=== PATIENT | female | born 1955 | race African-American/Black ===

== ENCOUNTER 2019-09-09 14:19 | Emergency (ER) | payer SELFPAY ==
[~2019-09-09] VITALS: Ht 165.1 cm; Wt 70.0 kg
[2019-09-09] MEDS ORDERED: ACETAMINOPHEN WITH CODEINE 300/30MG TABLET PO ONE (18:00)
[2019-09-09 20:10] VITALS: BP 131/74
== END 2019-09-09 20:10 | disposition home or self-care (01) ==
LOC: ER 14:19
DX: M22.3X1 Other derangements of patella, right knee (principal); I10 Essential (primary) hypertension
CPT/HCPCS: 73560; 99283

== ENCOUNTER 2019-11-11 10:23 | Inpatient (IN) | payer MEDICAID, OTHER ==
[~2019-11-11] VITALS: Ht 170.2 cm; Wt 97.1 kg
[2019-11-11] MEDS ORDERED: ASPIRIN 81MG TABLET PO ONE (11:00)
[2019-11-11] MEDS ORDERED: LORAZEPAM 0.5MG TABLET PO ONE (11:00)
[2019-11-11 11:29] LABS: BASOPHILS % 0.7 % (0.0-2.0); EOSINOPHILS % 0.1 % (0.0-5.0); HEMATOCRIT. 48.1 % (36.0-48.0); HEMOGLOBIN. 15.9 g/dL (12.0-16.0); LYMPHOCYTES % 26.6 % (20.0-50.0); MEAN CORPUSCULAR HEMOGLOBIN 29.5 pg (28.0-32.0); MEAN PLATELET VOLUME 8.2 fl (7.4-10.4); MONOCYTES % 5.7 % (2.0-8.0); NEUTROPHILS % 66.9 % (40.0-76.0); PLATELET 242 x1000/uL (130-400); RED BLOOD CELL COUNT 5.41 mill/uL (4.2-5.4); RED CELL DISTRIBUTION WIDTH 15.2 % (11.6-14.6)
[2019-11-11 11:38] LABS: CHLORIDE 102 mEq/L (98-107); INR 1.2; PROTHROMBIN TIME 12.2 sec (9.6-11.0)
[2019-11-11 11:41] LABS: CLARITY URINE CLEAR (CLEAR); COLOR URINE DARK YELLOW (YELLOW); KETONES URINE 2+ (NEGATIVE); LEUKOCYTE ESTERASE URINE TRACE (NEGATIVE); NITRITE URINE NEGATIVE (NEGATIVE); OCCULT BLOOD URINE TRACE (NEGATIVE); PROTEIN URINE 1+ (NEGATIVE); SPECIFIC GRAVITY URINE 1.033 (1.005-1.030)
[2019-11-11 11:43] LABS: ETHANOL BLOOD < 10 mg/dL
[2019-11-11] MEDS ORDERED: POTASSIUM CHLORIDE 20MEQ TABLET SR PO ONE ×2 (12:00)
[2019-11-11 12:03] LABS: CREATINE KINASE 149 IU/L (26-192)
[2019-11-11 12:08] LABS: *AMPHETAMINES SCREEN URINE NEGATIVE (NEGATIVE); *BARBITURATES SCREEN URINE NEGATIVE (NEGATIVE); *BENZODIAZEPINES SCREEN URINE NEGATIVE (NEGATIVE)
[2019-11-11 12:09] LABS: *COCAINE SCREEN URINE NEGATIVE (NEGATIVE); CANNABINOID URINE SCREEN NEGATIVE (NEGATIVE); METHADONE URINE SCREEN NEGATIVE (NEGATIVE); OPIATES URINE SCREEN NEGATIVE (NEGATIVE); PHENCYCLIDINE URINE SCREEN NEGATIVE (NEGATIVE)
[2019-11-11] MEDS ORDERED: AZITHROMYCIN 500 MG in DEXT 5% WATER 250 ML IV STA (12:14)
[2019-11-11] MEDS ORDERED: CEFTRIAXONE 1 G PREMIX 50 ML IV ONE (12:15)
[2019-11-11] MEDS ORDERED: LORAZEPAM 2MG/ML CPJ IV ONE (13:00)
[2019-11-11] MEDS ORDERED: NITROGLYCERIN 0.4MG TABLET SL SL ONE (15:30)
[2019-11-11] MEDS ORDERED: LORAZEPAM 1MG TABLET PO PRN (17:15)
[2019-11-11] MEDS ORDERED: ONDANSETRON HCL 4MG/2ML INJ IV PRN (17:15)
[2019-11-11] MEDS ORDERED: ENOXAPARIN 40MG/0.4ML SYR SUBCUT SCH (18:00)
[2019-11-11 19:00] VITALS: BP 131/101
[2019-11-11 20:28] VITALS: BP 133/82
[2019-11-11] MEDS ORDERED: NITROGLYCERIN 0.4MG TABLET SL SL PRN (20:45)
[2019-11-11] MEDS: METOPROLOL TARTRATE 50MG TABLET PO SCH (21:35)
[2019-11-11] MEDS: LORAZEPAM 1MG TABLET PO PRN (21:49)
[2019-11-12 00:06] VITALS: BP 141/83
[2019-11-12 04:00] VITALS: BP 154/70
[2019-11-12 08:00] VITALS: BP 134/80
[2019-11-12] MEDS: CEFTRIAXONE 1,000 MG in DEXTROSE 5% WATER 50 ML IV SCH (08:28)
[2019-11-12] MEDS ORDERED: ENOXAPARIN 40MG/0.4ML SYR SUBCUT SCH (09:00)
[2019-11-12] MEDS: ASPIRIN 325MG EC TABLET PO SCH (09:02)
[2019-11-12] MEDS: AZITHROMYCIN 250 MG TABLET PO SCH (09:03)
[2019-11-12] MEDS: LORAZEPAM 1MG TABLET PO PRN ×2 (09:03→20:22)
[2019-11-12] MEDS: METOPROLOL TARTRATE 50MG TABLET PO SCH ×2 (09:03→20:22)
[2019-11-12 12:00] VITALS: BP 151/84
[2019-11-12] MEDS ORDERED: CEFTRIAXONE 1 G PREMIX 50 ML IV SCH (12:00)
[2019-11-12] MEDS: NICOTINE 21MG PATCH TD SCH (13:56)
[2019-11-12 16:00] VITALS: BP 150/79
[2019-11-12 20:00] VITALS: BP 118/61
[2019-11-12] MEDS: ACETAMINOPHEN 325MG TABLET PO PRN (20:21)
[2019-11-13] VITALS: BP 166/83
[2019-11-13] MEDS: ACETAMINOPHEN 325MG TABLET PO PRN (02:47)
[2019-11-13 04:00] VITALS: BP 176/88
[2019-11-13] MEDS: LORAZEPAM 1MG TABLET PO PRN ×2 (04:13→14:36)
[2019-11-13 08:00] VITALS: BP 155/103
[2019-11-13] MEDS: CEFTRIAXONE 1,000 MG in DEXTROSE 5% WATER 50 ML IV SCH (08:15)
[2019-11-13] MEDS: AZITHROMYCIN 250 MG TABLET PO SCH (08:15)
[2019-11-13] MEDS: METOPROLOL TARTRATE 50MG TABLET PO SCH (08:15)
[2019-11-13] MEDS: ASPIRIN 325MG EC TABLET PO SCH (08:15)
[2019-11-13] MEDS: NICOTINE 21MG PATCH TD SCH (08:15)
[2019-11-13] MEDS ORDERED: LORA-250 PO (11:30)
[2019-11-13] MEDS ORDERED: AMLO10TA80 MT (11:30)
[2019-11-13] MEDS ORDERED: NICO-682 TD (11:30)
[2019-11-13 11:55] VITALS: BP 153/91
[2019-11-13 12:00] VITALS: BP 177/93
[2019-11-13] MEDS ORDERED: AMLODIPINE 10MG TABLET PO SCH (12:00)
[2019-11-13] MEDS ORDERED: HYDRALAZINE HCL 100MG TABLET PO SCH (13:45)
[2019-11-13] MEDS ORDERED: IOHEXOL-300 50 ML BOTTLE IV ONE (13:51)
[2019-11-14] MEDS ORDERED: ENOXAPARIN 30MG/0.3ML SYR SUBCUT SCH (09:00)
== END 2019-11-13 15:40 | disposition home or self-care (01) | DRG 139 ==
LOC: ER 10:23 → 7WST 16:01 → EDBEDREQ 16:27 → EDBEDREQTM 16:27 → ENRESERV 16:53 → ER 18:26 → CANBEDREQ 19:07
PROVIDERS: ADMIT Internal Medicine; ATTEND Internal Medicine
DX: J18.9 Pneumonia, unspecified organism (principal); F41.9 Anxiety disorder, unspecified; J96.00 Acute respiratory failure, unspecified whether with hypoxia or hypercapnia; Z20.828 Contact with and (suspected) exposure to other viral communicable diseases; F17.210 Nicotine dependence, cigarettes, uncomplicated; E87.6 Hypokalemia; E66.9 Obesity, unspecified; I10 Essential (primary) hypertension; Z71.6 Tobacco abuse counseling; Z71.3 Dietary counseling and surveillance; Z68.33 Body mass index [BMI] 33.0-33.9, adult
CPT/HCPCS: 36415; 71045; 80053; 80305; 80320; 81003; 82550; 83605; 83880; 84484; 85025; 87426; 87635; 93005; 99285; J0456; J0696; J1650; J2060; J7060; Q9967; G0480